=== PATIENT | male | born 1940 | race Caucasian/White ===

== ENCOUNTER 2023-08-07 06:03 | Day surgery (SDC) | payer MEDICARE, BC ==
[2023-08-07 07:01] LABS: #Basophils 0.1 10x3/uL (0.0-0.2); #Eosinphils 0.2 10x3/uL (0.0-0.5); #Monocytes 0.4 10x3/uL (0.0-1.1); %Basophils 1.2 % (0.0-2.0); %Eosinophils 4.6 % (0.0-6.0); %Lymphocytes 42.6 % (18.0-47.0); %Monocytes 9.1 % (0.0-10.0); %Neutrophils 42.3 % (40.0-75.0); Hematocrit 38.1 % (38.8-50.0); Hemoglobin 12.2 g/dL (13.5-17.5); Mean Corpuscular Hemoglobin 28.6 pg (27.0-33.0); Mean Corpuscular Volume 89.2 fl (81.2-95.1); Mean Platelet Volume 8.8 fl (7.4-10.4); Platelet Count 216 10x3/uL (150-450); RBC Distribution Width 14.6 % (11.5-14.5); Red Blood Cell (RBC) Count 4.27 10x6/uL (4.32-5.72); White Blood Cell (WBC) Count 4.8 10x3/uL (3.5-10.5)
[2023-08-07] MEDS ORDERED: Adenosine 6 MG/2 ML VIAL ONE (07:12)
[2023-08-07] MEDS ORDERED: Lidocaine 1% (PF) 30 ML VIAL ONE (07:12)
[2023-08-07] MEDS ORDERED: Nitroglycerin 50 MG/250 ML BOT 250 ML ONE (07:12)
[2023-08-07] MEDS ORDERED: Atropine Sulfate 1 mg/1 ml Vial ONE (07:12)
[2023-08-07] MEDS ORDERED: Heparin 10,000 UNITS/ 10 ML VIAL ONE (07:12)
[2023-08-07 07:21] VITALS: BP 137/65; TEMP 98.1
[2023-08-07 07:22] LABS: INR-International Normal Ratio 1.1; PTT 29.9 sec (22.0-33.0); Prothrombin Time 11.8 sec (9.5-12.1)
[2023-08-07 07:23] LABS: Anion Gap 13 mmol/L (10-20); BUN (Urea Nitrogen) 19 mg/dL (8.4-25.7); Calc. Creatinine Clearance 66 mL/min (70-130); Calcium 9.5 mg/dL (7.8-10.44); Carbon Dioxide 25 mmol/L (23-31); Chloride 104 mmol/L (98-107); Estimated GFR 87; Glucose 80 mg/dL (83-110); Potassium 4.2 mmol/L (3.5-5.1); Sodium 138 mmol/L (136-145)
[2023-08-07] MEDS ORDERED: Verapamil 5 MG/2 ML VIAL ONE (07:36)
[2023-08-07] MEDS ORDERED: Midazolam HCl 2 mg/2 ml Vial ONE (07:52)
[2023-08-07] MEDS ORDERED: fentaNYL 50 mcg/mL 1 mL Vial ONE (07:52)
[2023-08-07] MEDS ORDERED: Iopamidol 300 61% 100 ML VIAL FS ONE (09:50)
[2023-08-07] MEDS ORDERED: FLU VACC QS2023(65UP)/MF59C/PF 60 MCG/0.5 ML SYRINGE IM ONE (12:00)
== END 2023-08-07 12:33 | disposition home or self-care (01) ==
LOC: CSHCCL 06:03
PROVIDERS: ATTEND Specialist
PROC: 02703ZZ Dilation of Coronary Artery, One Artery, Percutaneous Approach (ICD-10-PCS; principal; 2023-08-07)
DX: I25.10 Atherosclerotic heart disease of native coronary artery without angina pectoris (principal); I35.0 Nonrheumatic aortic (valve) stenosis; I10 Essential (primary) hypertension; E03.9 Hypothyroidism, unspecified; K21.9 Gastro-esophageal reflux disease without esophagitis; E78.2 Mixed hyperlipidemia; I49.1 Atrial premature depolarization; M10.9 Gout, unspecified; Z90.49 Acquired absence of other specified parts of digestive tract; Z90.89 Acquired absence of other organs; Z96.641 Presence of right artificial hip joint; Z88.8 Allergy status to other drugs, medicaments and biological substances; Z79.899 Other long term (current) drug therapy; Z79.890 Hormone replacement therapy; Z79.891 Long term (current) use of opiate analgesic
CPT/HCPCS: 0715T; 71045; 80048; 85025; 85347; 85610; 85730; 92921; 93005; 93454; C1725; C1761; C1769; C1874; C1887; C1894; C9600; J3010; 92928; 93010; 99152; 99153; J0153; J0461; J1644; J2001; J2250; Q9967